=== PATIENT | female | born 1960 | race Caucasian/White ===

== ENCOUNTER → 2017-12-10 | Outpatient (CLI) | payer BC ==
[~2017-12-10] MED LIST: FLVHFA110 INH; PARO1TAB27 PO; PRLSR20 PO
--- NOTE | 2017-12-10 15:39 | MAMMOGRAPHY REPORT ---
BILATERAL DIGITAL SCREENING MAMMOGRAM TOMOSYNTHESIS WITH CAD: 12/10/2017 CLINICAL HISTORY: Routine screening. Patient has no complaints. TECHNIQUE: Breast tomosynthesis in addition to standard 2D mammography was performed. Current study was also evaluated with a Computer Aided Detection (CAD) system. COMPARISON: Comparison is made to exams dated: 11/01/2016 mammogram, 05/02/2016 mammogram, 10/20/2015 mammogram - [facility], 07/30/2013 mammogram, 02/14/2012 mammogram, and 02/01/2011 dylon mogram. BREAST COMPOSITION: There are scattered areas of fibroglandular density in both breasts. FINDINGS: There is a lobulated and circumscribed mass in the upper outer anterior left breast that h as slightly increased in size comparing to prior mammograms, currently measuring 16 x 18 x 16 mm. De finitive characterization with targeted ultrasound and possible additional mammographic views are rec ommended. No other suspicious mass, architectural distortion or cluster of microcalcifications is seen bilatera lly. IMPRESSION: ACR BI-RADS CATEGORY 0: INCOMPLETE EVALUATION: NEED ADDITIONAL IMAGING EVALUATION The lobulated and circumscribed 16 x 18 x 16 mm mass in the upper outer anterior left breast needs ad ditional evaluation. The patient will be called to schedule an appointment. Approximately 10% of breast cancers are not detected with mammography. A negative mammographic report should not delay biopsy if a clinically suggestive mass is present. Natalia Block M.D. ay/:12/10/2017 14:09:52 Fundraising Director: Marina COVARRUBIAS(Rajiv)(M), [facility] letter sent: Addl Imaging 0 BI-RADS Code: ACR BI-RADS Category 0: Incomplete Evaluation: Need Additional Imaging Evaluation
== END | disposition home or self-care (01) ==
LOC: C.MAMM 13:35
PROVIDERS: ATTEND Surgery
DX: Z12.31 Encounter for screening mammogram for malignant neoplasm of breast (principal); N63.20 Unspecified lump in the left breast, unspecified quadrant

== ENCOUNTER → 2017-12-16 | Outpatient (CLI) | payer BC ==
[2017-12-16 13:58] LABS: ALBUMIN 3.6 gm/dl (3.4-5.0); ALT/SGPT 31 U/L (12-78); BLOOD UREA NITROGEN 19 mg/dl (7-18); CALCIUM 8.8 mg/dl (8.5-10.1); CARBON DIOXIDE 24 mmol/L (21-32); CHOLESTEROL 229 mg/dl (0-200); CREATININE 0.82 mg/dl (0.60-1.20); GLUCOSE 108 mg/dl (70-99); SODIUM 139 mmol/L (136-145)
[2017-12-16 14:01] LABS: ALKALINE PHOSPHATASE 101 U/L (45-117); AST/SGOT 18 U/L (15-37); LDL CHOLESTEROL CALCULATED 159 mg/dl; TOTAL PROTEIN 7.3 gm/dl (6.4-8.2)
== END | disposition home or self-care (01) ==
LOC: C.LABBC 10:11
PROVIDERS: ATTEND Nurse Practitioner Adult Health
DX: E78.5 Hyperlipidemia, unspecified (principal); E55.9 Vitamin D deficiency, unspecified

== ENCOUNTER → 2017-12-19 | Outpatient (CLI) | payer BC ==
--- NOTE | 2017-12-22 07:41 | MAMMOGRAPHY REPORT ---
UNILATERAL LEFT DIGITAL DIAGNOSTIC MAMMOGRAM TOMOSYNTHESIS AND TARGETED LEFT ULTRASOUND: 12/19/2017 CLINICAL HISTORY: Callback from screening mammogram for left breast mass. TECHNIQUE: Breast tomosynthesis in addition to standard 2D mammography was performed. Spot compress ion left CC and MLO 2-D and tomosynthesis images were obtained. COMPARISON: Comparison is made to exams dated: 12/10/2017 mammogram, 11/01/2016 mammogram, 05/02/2016 mammogram, 10/30/2015 mammogram - [facility], 07/30/2013 mammogram, and 02/19/2012 dylon mogram. BREAST COMPOSITION: There are scattered areas of fibroglandular density in the left breast. FINDINGS: A lobulated mass is seen within the left 3:00 breast, measuring approximately 18 x 14 x 18 mm. The mass appears slightly increased to prior exams. Targeted ultrasound was performed of the l eft 3:00 breast in the region of the mammographic mass. In the left breast at 3:00, 3 cm from the ni pple, there is a mixed echogenicity lobulated mass which measures 17 x 10 x 13 mm. This corresponds with the increasing mammographic mass and is indeterminate. Recommend ultrasound guided core needle biopsy for further evaluation. This may represent a fibroadenoma or potentially a papilloma. IMPRESSION: ACR BI-RADS CATEGORY 4: SUSPICIOUS, TARGETED ULTRASOUND ACR BI-RADS CATEGORY 4: SUSPICIO US Mixed echogenicity 17 mm mass in the left breast at 3:00 on ultrasound, which corresponds with the sl ightly increased mammographic mass. The mass is indeterminate and ultrasound guided core needle biop sy is recommended for further evaluation. A phone call was made to the physician's office to confirm faxed results were received. The patient has been verbally notified of the results. She tentatively scheduled the biopsy before leaving the [facility]. Approximately 10% of breast cancers are not detected with mammography. A negative mammographic report should not delay biopsy if a clinically suggestive mass is present. Doreen Ramírez M.D. /:12/19/2017 11:53:45 Manager Filter: Rema Bhatia RT(R)(M), [facility] letter sent: Abnormal 4/5 BI-RADS Code: ACR BI-RADS Category 4: Suspicious Ultrasound BI-RADS: ACR BI-RADS Category 4: Suspici ous
== END | disposition home or self-care (01) ==
LOC: C.MAMM 10:54
PROVIDERS: ATTEND Nurse Practitioner Adult Health
DX: N63.20 Unspecified lump in the left breast, unspecified quadrant (principal)

== ENCOUNTER → 2017-12-24 | Outpatient (CLI) | payer BC ==
--- NOTE | 2017-12-24 08:26 | Discharge Instructions ---
Discharge Instructions Procedure Procedure Date: Dec 24, 2017. Reason for visit: Left Mass. Discharge Discharge Date: Dec 24, 2017. Discharge Diagnosis: post left breast ultrasound guided core biopsy Instructions Activity Recommendations: Additional Limitations (see below) Return to School/Work: no limitations Recommended Home Diet: No Limitations Provider Instructions: ACTIVITY RECOMMENDATIONS: * No lifting, pushing, pulling or exercising the affected side for three days. RETURN TO SCHOOL/WORK: * You may return to work/school after the procedure, but do not perform any strenuous activities for 24 to 48 hours. MEDICATIONS: * Tylenol (two 325 mg) every four to six hours if needed for mild pain (if not allergic to Tylenol). DIET: * Resume previous diet. SPECIAL CARE INSTRUCTIONS: * Keep biopsy site dry for 24 hours. May shower after 24 hours, but do not soak (bathe) incision. * May remove Tegaderm (plastic patch) tomorrow AFTER showering. * Leave the steri-strips on for one week. Allow the steri-strips to fall off by themselves. If not off after one week, you may remove them. You may place a Bandaid crosswise over the strips, if desired. * Apply ice 10 minutes on and 10 minutes off as needed. * Wear a bra at bedtime to sleep more comfortably for 2-3 days. * Your referring physician should have the results after approximately 5 to 7 business days. * Call for unusual bleeding, fever, drainage, etc or if you have any questions call [phone] during normal business hours or after hours call Dr Block, . FOLLOW UP VISIT: Follow-up with Referring Physician as scheduled. Allergies Coded Allergies: Adhesives (Verified Allergy, Unknown, ITCHY AND RED, 12/01/15) NO KNOWN DRUG ALLERGIES (Verified Allergy, Unknown, ., 12/01/15) Miguel Mckoy Recommendations: Call your doctor if: * Temperature above 101 degrees * Pain not relieved by pain medicine ordered * There is increased drainage or redness from any incision * You have any unanswered questions or concerns. Your Doctors Instructions noted above were prepared by provider Natalia Block. Patient Signature Section: Patient Instructions Signature Page Brigette Gualberto Patient (or Guardian) Signature/Date: I have read and understand the instructions given to me by my caregivers. Caregiver/RN/Doctor Signature/Date: The above-named patient and/or guardian has received patient instructions on this date. + Original Patient Signature Page (only) stays with chart. Please make copy for patient.
--- NOTE | 2017-12-24 14:01 | MAMMOGRAPHY REPORT ---
UNILATERAL LEFT DIGITAL DIAGNOSTIC MAMMOGRAM TOMOSYNTHESIS: 12/24/2017 CLINICAL HISTORY: 57-year-old woman presents for biopsy of a mixed echogenicity solid, 17 mm mass in the 3:00 left breast, that has slightly increased in size comparing to prior mammograms. 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 Family history of breast cancer. Please refer to the report from left breast ultrasound guided core biopsy performed at the same time for full detail. IMPRESSION: POST PROCEDURE IMAGING FOR MARKER PLACEMENT Please refer to the report from left breast ultrasound guided core biopsy performed at the same time for full detail. Approximately 10% of breast cancers are not detected with mammography. A negative mammographic report should not delay biopsy if a clinically suggestive mass is present. Natalia Block M.D. ay/:12/24/2017 08:24:52 Biofuels Plant Superintendent: Hiram GASTELUM)(Meggan), [facility] BI-RADS Code: Post Procedure Imaging For Marker Placement
--- NOTE | 2017-12-24 14:01 | MAMMOGRAPHY REPORT ---
ULTRASOUND GUIDED BIOPSY LEFT BREAST: 12/24/2017 CLINICAL HISTORY: Slowly enlarging 17 mm mixed echogenicity mass in the 3:00 left breast. Patient pr esented for ultrasound guided core biopsy. Patient has a history of prior left breast papillomas sta tus post surgical excision. COMPARISON: Comparison is made to exams dated: 12/19/2017 ultrasound, 12/19/2017 mammogram, 12/10/2017 ma mmogram, 11/01/2016 mammogram, 10/20/2015 mammogram - [facility], and 07/30/2013 mamm ogram. PATIENT CONSENT: The procedure, risks and benefits were discussed with the patient and informed conse nt was obtained both verbally and in writing. Specific risks to this procedure include: bleeding, in fection, puncture of adjacent structure, nontarget biopsy, sampling error, pain, metal allergy and me dication reaction. PROCEDURE DESCRIPTION: A time out was performed and the left breast was agreed as the site of biopsy. The skin was prepped and draped in the usual sterile fashion. The mixed echogenicity solid 17 mm mas s in the 3:00 left breast was chosen as the target for biopsy. Subcutaneous and intraparenchymal 1% b uffered lidocaine, with and without epinephrine, was administered as local anesthesia. A skin incisio n was made. Through the incision, 5 samples were taken with a 14 gauge Achieve biopsy device. A ribb on shaped metallic marker was placed at the biopsy site. Hemostasis was achieved after manual janee camilo. The patient tolerated the procedure well and there was no immediate complication. The samples were sent to the pathology department in an appropriately labeled container. Post procedure left CC and ML tomosynthesis images were obtained. A new ribbon-shaped biopsy marker clip is seen within the lobulated mammographic mass in question in the 3:00 anterior left breast. No significant post biopsy hematoma. IMPRESSION: ULTRASOUND GUIDED BIOPSY Status post ultrasound guided core biopsy of a lobulated 17 mm mass in the 3:00 anterior left breast, with biopsy marker clip placed at the site. The patient will receive notification of the biopsy results from her referring physician. Natalia Block M.D. ay/:12/24/2017 08:44:18 Attending Technologist: Dr. Natalia Block, [facility] Blankbook Forwarder: Hiram Rodriguez RT(R)(M), [facility]
== END | disposition home or self-care (01) ==
LOC: C.MAMM 07:48
PROVIDERS: ATTEND Nurse Practitioner Adult Health
DX: N63.21 Unspecified lump in the left breast, upper outer quadrant (principal)

== ENCOUNTER → 2018-01-01 | Outpatient (CLI) | payer BC ==
[2018-01-01 14:03] LABS: HEMOGLOBIN A1C 6.1 % (4.5-5.6)
== END | disposition home or self-care (01) ==
LOC: C.LABBC 12:02
PROVIDERS: ATTEND Nurse Practitioner Adult Health
DX: R73.01 Impaired fasting glucose (principal)

== ENCOUNTER → 2018-02-24 | Day surgery (SDC) | payer BC ==
[2018-02-10 18:03] LABS: BASO % 0.1 %; BASO ABS # 0.01 K/uL (0-0.2); EOS % 0.7 %; EOS ABS # 0.07 K/uL (0-0.5); HEMATOCRIT 45.3 % (37-47); HEMOGLOBIN 15.8 g/dL (12.0-16.0); IG# 0.03 K/uL (0.00-0.02); LYMPH % 25.3 %; LYMPH ABS # 2.53 K/uL (1.2-3.4); MEAN CELL VOLUME 86.5 fL (80-100); MEAN CORPUSCULAR HEMOGLOBIN 30.2 pg (25-34); MEAN CORPUSCULAR HGB CONC 34.9 g/dl (32-36); MEAN PLATELET VOLUME 10.6 fL (7.4-10.4); MONO % 6.9 %; MONO ABS # 0.69 K/uL (0.11-0.59); NEUT % 66.7 %; NEUT ABS # 6.66 K/uL (1.4-6.5); PLATELET COUNT 238 K/uL (130-400); RED CELL DISTRIBUTION WIDTH CV 14.2 % (11.5-14.5); RED CELL DISTRIBUTION WIDTH SD 45.1 fL (36.4-46.3); WHITE BLOOD COUNT 9.99 K/uL (4.8-10.8)
[2018-02-10 18:23] LABS: BLOOD UREA NITROGEN 27 mg/dl (7-18); CARBON DIOXIDE 24 mmol/L (21-32); CREATININE 0.73 mg/dl (0.60-1.20); GLUCOSE 83 mg/dl (70-99); POTASSIUM 3.7 mmol/L (3.5-5.1); SODIUM 138 mmol/L (136-145)
[2018-02-12 09:50] VITALS: Ht 167.6 cm; Wt 92.7 kg
[~2018-02-24] VITALS: Ht 167.6 cm; Wt 92.7 kg
[~2018-02-24] MED LIST changes: +ATROPINE SULFATE 0.1 MG/ML 5ML SYR IV PRN; +BUPIVACAINE 0.5 % 5 MG/1 ML MPF 30ML VIAL ONE; +CEFAZOLIN 2000MG IV PUSH 15 ML IV SCH; +DEXAMETHASONE SOD INJ 4 MG/ML VIAL ONE; +EpHEDrine SULFATE INJ 50 MG/ML AMP IV PRN; +FENTANYL CITRATE INJ 50 MCG/1 ML 2 ML VIAL IV PRN; +FENTANYL CITRATE INJ 50 MCG/1 ML 2 ML VIAL ONE; +HYDR-5688 PO; +HYDROCODONE/ACETAMIN 5/325MG TAB PO PRN; +LACTATED RINGER'S 1000ML 1,000 ML IV SCH; +LIDOCAINE HCL 1% 20 ML VIAL ONE; +LIDOCAINE HCL 2% 2 ML VIAL (20MG/ML) ONE; +MIDAZOLAM HCL 1 MG/ML 2ML VIAL ONE; +ONDANSETRON INJ 2 MG/ML 2 ML VIAL IV PRN; +ONDANSETRON INJ 2 MG/ML 2 ML VIAL ONE; +PROPOFOL IV EMULSION 10 MG/ML 20 ML VIAL IV ONE; +SODIUM CHLORIDE 0.9% 1000ML 1,000 ML IV SCH
--- NOTE | 2018-02-24 08:34 | History & Physical Bridge - SC ---
H&P Re-Evaluation Bridge Note: I have examined the patient, reviewed the History & Physical and in the interval since the performance of the History & Physical I have noted the following changes of clinical significance: No changes noted
--- NOTE | 2018-02-24 08:36 | Discharge Instructions-SurgCtr ---
Discharge Instructions Date of Service Feb 24, 2018. Visit Reason for Visit: Left Breast Abnormal Mammogram Discharge Discharge Diagnosis / Problem: Lt breast mass Discharge Goals Goal(s): Decrease discomfort, Improve function, Improve disease control Activity Recommendations Activity Limitations: as noted below Lifting Limitations: no more than 25 pounds Exercise/Sports Limitations: until after follow-up appointment May Resume Sexual Activity: when tolerated Shower/Bathe: keep incision dry (may shower in 2 days- ) Driving or Machine Use: resume 1 day after discharge Anesthesia . Post Anesthesia Instructions: If you have had General Anesthesia or IV Sedation: * Do not drive today. * Resume driving when surgeon permits. * Do not make important decisions or sign legal documents today. * Call surgeon for: 1. Temperature elevations greater than 101 degrees F. 2. Uncontrollable pain. 3. Excessive bleeding. 4. Persistent nausea and vomiting. 5. Medication intolerance (nausea, vomiting or rash). * For nausea and vomiting use only clear liquids such as: tea, soda, bouillon until nausea subsides, then gradually increase diet as tolerated. * If you have any concerns or questions, call your surgeon's office. If physician is unavailable and it is an emergency, call 911 or go to the nearest emergency room. . Instructions / Follow-Up Instructions / Follow-Up SPECIAL CARE INSTRUCTIONS: * Cover incisions and change daily for comfort/drainage. * Leave steri strips in place * May use ibuprofen for pain as tolerated. * Expect some swelling and bruising. Call your doctor if: * Temperature above 101 degrees * Pain not relieved by pain medicine ordered * There is increased drainage or redness from any incision * You have any unanswered questions or concerns [phone]. FOLLOW UP VISIT: If not already scheduled, please call the office for a follow-up visit. for 2 weeks- checkup OFFICE PHONE NUMBER: Dr. Pedroza Office Diet Recommendations Home Diet: resume previous diet Pending Studies Studies pending at discharge: no Medical Emergencies . Who to Call and When: Medical Emergencies: If at any time you feel your situation is an emergency, please call 911 immediately. . Non-Emergent Contact Non-Emergency issues call your: Primary Care Provider, Surgeon . . "Provider Documentation" section prepared by Sam Pedroza. .
--- NOTE | 2018-02-24 09:26 | [facility] Operative Report ---
Operative Report Operative Date Feb 24, 2018. Pre-Operative Diagnosis Left Breast Abnormal Mammogram Post-Operative Diagnosis same Procedure(s) Performed Left Breast Biopsy With Needle Localization Surgeon Dr. Iggy Pedroza Assembly Detailer Surgeon(s) Tiffanie Hernández PA-C Estimated Blood Loss 10CC Findings breast tissue Specimens A. Left Breast Tissue-out of pt@0912; sent to breast [facility]; needle=inferior; long silk=anterior; short silk=superior/end of needle Drains None Anesthesia Type MAC Complication(s) none Disposition Recovery Room / PACU I attest to the content of the Intraoperative Record and any orders documented therein. Any exceptions are noted below.
[2018-02-24 09:40] VITALS: TEMP 36.3
--- NOTE | 2018-02-24 09:51 | OPERATIVE REPORT ---
DATE OF OPERATION: 02/24/2018 NAME OF OPERATION: Needle localization left breast biopsy. PREOPERATIVE DIAGNOSIS: Abnormal mammogram, left breast. POSTOPERATIVE DIAGNOSIS: Same. STAFF SURGEON: Sam Pedroza MD PROTOCOL OFFICER: Tiffanie Hernández PA-C. ANESTHESIA: 1% plain lidocaine with sedation. PROCEDURE: The patient brought in the operating room and placed on the operating table in supine position. She had a needle placed in the left breast at the breast center, the needle was at approximately 5 o'clock from inferior to superior toward the nipple somewhat superficial. 1% plain lidocaine was used to anesthetize the skin and subcutaneous tissue. Incision was made around the needle carrying dissection down around the needle excising the tissue. Tissue was marked with the needle inferior, long silk suture anterior, short silk suture superior. At the end of the specimen and needle toward the nipple areolar complex. It was sent for mammography and the clip was within the tissue. Deep tissue was reapproximated using 2-0 plain catgut suture then the skin reapproximated using subcuticular 5-0 Monocryl with Steri-Strips. Dressing applied and patient transferred to recovery area in stable condition. My program support assistant helped with prepping, draping, exposure of the tissue and closure of the wound. I attest to the content of the Intraoperative Record and any orders documented therein. Any exception s are noted below.
[2018-02-24 10:11] VITALS: BP 113/75; PULSE 79; O2SAT 95
--- NOTE | 2018-02-24 10:19 | Anesthesia Progress Nt - [facility] ---
Anesthesia Post Op Note Date & Time Feb 24, 2018 at 10:19 Vital Signs Pain Intensity: 0 Vital Signs Past 12 Hours Date Time Temp Pulse Resp B/P (MAP) Pulse Ox O2 Delivery O2 Flow Rate FiO2 02/24/18 10:11 79 20 113/75 (88) 95 Room Air 02/24/18 09:40 36.3 86 16 133/73 (93) 96 Room Air 02/24/18 07:18 36.4 62 20 135/78 (97) 95 Room Air Notes Mental Status: alert / awake / arousable, participated in evaluation Pt Amnestic to Procedure: Yes Nausea / Vomiting: adequately controlled Pain: adequately controlled Airway Patency, RR, SpO2: stable & adequate BP & HR: stable & adequate Hydration State: stable & adequate Anesthetic Complications: no major complications apparent
--- NOTE | 2018-02-24 12:51 | MAMMOGRAPHY REPORT ---
SPECIMEN: 02/24/2018 CLINICAL HISTORY: Surgical excision of an enlarging fibroadenomatoid nodule in the 3:00 left breast. Patient presents for preoperative needle localization. Please refer to the report from left breast ultrasound-guided needle localization performed at the [facility] time for full detail. IMPRESSION: SPECIMEN Please refer to the report from left breast ultrasound-guided needle localization performed at the [facility] time for full detail. Natalia Block M.D. ay/:02/24/2018 08:19:04 Costume Seamstress: Rema Delaney, [facility]
--- NOTE | 2018-02-24 12:51 | MAMMOGRAPHY REPORT ---
NEEDLE LOCALIZATION LEFT BREAST: 02/24/2018 CLINICAL HISTORY: Enlarging fibroadenomatoid nodule in the 3:00 left breast. Patient presents for pr eoperative needle and wire localization prior to surgical excision. She also has a history of left b reast papillomas. COMPARISON: Comparison is made to exams dated: 12/24/2017 ultrasound biopsy, 12/24/2017 mammogram, 018 ultrasound, 12/19/2017 mammogram, 12/10/2017 mammogram, and 11/01/2016 mammogram - [facility]. PATIENT CONSENT: The risks of the procedure were explained to the patient and informed consent was ob tained. The patient denied eating or drinking anything this morning that would preclude anesthesia. She also denied allergy to lidocaine. PROCEDURE DESCRIPTION: Diagnostic ultrasound, ultrasound-guided core biopsy and postprocedure mammogr ams of the left breast were reviewed. The enlarging mass in the 3:00 left breast is the intended tar get for preoperative localization. In the supine position with arm extended, the left breast was renetta ansed with Betadine. 1% buffered Lidocaine without epinephrine was administered as local anesthesia. A 5cm Herrera II needle and wire combination was inserted into the left breast through the multilobu lated mass in question. Optimal positioning was confirmed and the wire was locked in place, leaving both the needle and wire within the breast, as per surgeon's preference. The entire procedure includ ing approach and needle length were discussed with the operating surgeon prior to surgery. The patie nt tolerated the procedure well and there was no immediate complication. She was transferred to the operating room in satisfactory condition. The specimen radiograph demonstrates a lobulated mass, the localizing needle and wire as well as the biopsy marker clip, compatible with successful preoperative localization and subsequent surgical exci camilo. IMPRESSION: NEEDLE LOCALIZATION Status post preoperative needle and wire localization for a biopsy-proven fibroadenomatoid nodule in the 3:00 left breast. The imaged specimen includes the intended abnormality. The patient will receive notification of the final pathology results from her referring physician. Natalia Block M.D. ay/:02/24/2018 12:33:37 Semiconductor Packages Tester: Rema Delaney, [facility]
--- NOTE | 2018-02-24 12:51 | MAMMOGRAPHY REPORT ---
UNILATERAL LEFT DIGITAL DIAGNOSTIC MAMMOGRAM TOMOSYNTHESIS: 02/24/2018 CLINICAL HISTORY: Enlarging fibroadenomatoid nodule in the 3:00 left breast. Patient presents for pr eoperative needle and wire localization. Please refer to the report from left breast ultrasound-guided needle localization performed at the [facility] time for full detail. IMPRESSION: Please refer to the report from left breast ultrasound-guided needle localization performed at the [facility] time for full detail. Approximately 10% of breast cancers are not detected with mammography. A negative mammographic report should not delay biopsy if a clinically suggestive mass is present. Natalia Block M.D. ay/:02/24/2018 08:20:29 Dump Motor Operator: Rema Delaney, [facility] BI-RADS Code: n/a
== END | disposition home or self-care (01) ==
LOC: X.SURG 06:48
PROVIDERS: ATTEND Surgery
DX: R92.8 Other abnormal and inconclusive findings on diagnostic imaging of breast (principal); D24.2 Benign neoplasm of left breast; K21.9 Gastro-esophageal reflux disease without esophagitis; F41.8 Other specified anxiety disorders; E78.5 Hyperlipidemia, unspecified; E55.9 Vitamin D deficiency, unspecified; J45.909 Unspecified asthma, uncomplicated; Z82.49 Family history of ischemic heart disease and other diseases of the circulatory system; Z87.891 Personal history of nicotine dependence; Z91.048 Other nonmedicinal substance allergy status; Z80.3 Family history of malignant neoplasm of breast